=== PATIENT | male | born 1975 | race Caucasian/White ===

== ENCOUNTER 2023-07-08 14:56 | Emergency (ER) | payer MEDICAID ==
[~2023-07-08] VITALS: Ht 172.7 cm; Wt 100.1 kg
[2023-07-08 14:57] VITALS: BP 158/72; PULSE 89; RESP 16; TEMP 97.7; O2SAT 98
== END 2023-07-08 18:48 | disposition left against medical advice (07) ==
LOC: ER 14:58
DX: M25.511 Pain in right shoulder (principal); Z53.21 Procedure and treatment not carried out due to patient leaving prior to being seen by health care provider

== ENCOUNTER 2023-07-12 10:13 | Emergency (ER) | payer MEDICAID ==
[~2023-07-12] VITALS: Ht 172.7 cm; Wt 107.0 kg
[2023-07-12 10:32] VITALS: BP 153/66; PULSE 89; RESP 18; TEMP 97.8; O2SAT 98
== END 2023-07-12 12:29 | disposition home or self-care (01) ==
LOC: ER 10:13
DX: Z00.8 Encounter for other general examination (principal)
CPT/HCPCS: 99281